=== PATIENT | female | born 1945 | race Caucasian/White ===

== ENCOUNTER 2018-08-14 16:16 | Inpatient (IN) | payer MEDICARE, MEDICAID ==
[~2018-08-14] VITALS: Ht 165.1 cm; Wt 73.5 kg
[~2018-08-14 16:16] MED LIST: ACET325T14 PO; ALBU8.5H5 INH; ALPR-475 PO; AMLO5TAB4 PO; AMOX1TAB64 PO; AZIT500T5 PO; CHOL100015 PO; CIPR500T87 PO; CYCL25CA12 PO; CYCL5TAB PO; DIAZ5TAB PO; DICL50TA4 PO; DICY10CA3 PO; DOCU-131 PO; FAMO-79 PO; FLUT1DIS5 IH; GABA300C10 PO; GUAI600T80 PO; HYDR-3237 PO; HYDR-3343 PO; IBUP-1222 PO; INSU100I28 SQ-INSULIN; INSU100V8 SQ; IPRA3AMP30 NEB; IPRA3AMP30 NPPB; LACT10SO28 PO; LEVO500T47 PO; LISI-170 PO; NICO-487 TD; NIFE10CA49 PO; NITR0.4T28 SL; ONDA4TAB10 PO; PANT40TA3 PO; POLY17PO5 PO; PRED20TA PO; TIOT18CA INH; TRIA40VI IM
--- NOTE | 2018-08-14 16:20 | NUR ---
PT BIB [facility] FROM HER GRANDDAUGHTER'S HOUSE WITH C/O SOB, ANXIETY, NAUSEA, AND EPIGASTRIC ABD PAIN. PT STATES HE HAS HX OF HERNIA, TAKES OMEPRAZOLE, IS SCHEDULED FOR ENDOSCOPY ON 08/23. PT STATES SHE HAS HAD INTERMITTENT ABD PAIN FOR SEVERAL YEARS AND "EVERY TIME I GO TO MY PCP, THEY SEND ME TO THE ER." 12-LEAD PER EMS UNREMARKABLE, INVERTED T WAVES NOTED. VS PER EMS: HR 74 SR, 130/88, BS 115. PT WAS TREATED WITH 4MG ZOFRAN AND 2MG VERSED FOR "PANIC ATTACK." PLACED ON 2L O2 NC AFTER VERSED. PT ARRIVES TO ED A&OX4, ANXIOUS, HYPERVENTILATING. MULTIPLE COMPLAINTS, POOR HISTORIAN, SCATTERED.
[2018-08-14] MEDS ORDERED: SODIUM CHLORIDE FLUSH 10ML SYR IVF ONE (16:30)
[2018-08-14] MEDS ORDERED: ONDANSETRON 2MG/ML, 2ML IVPush ONE ×2 (16:30→23:30)
[2018-08-14] MEDS ORDERED: LORazepam 2 MG/ML, 1ML IVPush ONE (16:30)
[2018-08-14 16:55] LABS: BASOPHILS % (AUTO) 1 % (0-1); EOSINOPHILS # (AUTO) 0.08 x10^3/uL (0-0.4); EOSINOPHILS % (AUTO) 1 % (1-7); LYMPHOCYTES # (AUTO) 3.41 x10^3/uL (1-3.4); LYMPHOCYTES % (AUTO) 41 % (22-44); MD NO; MEAN CORPUSCULAR HEMOGLOBIN 29.9 pg (27.0-34.8); MEAN CORPUSCULAR HGB CONC 32.8 g/dL (32.4-35.8); MEAN CORPUSCULAR VOLUME 91.3 fL (80-100); MEAN PLATELET VOLUME 8.5 fL (7.4-10.4); MONOCYTES # (AUTO) 0.32 x10^3/uL (0.2-0.8); MONOCYTES % (AUTO) 4 % (2-9); NEUTROPHILS # (AUTO) 4.41 x10^3/uL (1.8-6.8); NEUTROPHILS % (AUTO) 53 % (42-75); PLATELET COUNT 205 x10^3/uL (130-400); RED BLOOD COUNT 4.39 x10^6/uL (3.82-5.3); RED CELL DISTRIBUTION WIDTH 13.4 % (9.6-15.2)
[2018-08-14] MEDS ORDERED: ONDANSETRON 2MG/ML, 2ML ONE (16:56)
[2018-08-14 17:05] LABS: INTERNATIONAL NORMALIZED RATIO 0.94 (0.93-1.1); PROTHROMBIN TIME 9.9 Seconds (9.6-11.5)
[2018-08-14 17:08] LABS: ALBUMIN 3.6 g/dL (3.4-5.0); ANION GAP 7 mmol/L (5-15); CALCIUM 10.2 mg/dL (8.5-10.1); CHLORIDE 114 mmol/L (98-107)
--- NOTE | 2018-08-14 17:09 | NUR ---
PT MEDICATED PER ORDERS. WARM BLANKETS PROVIDED. UNDERSTANDS POC.
[2018-08-14 17:13] LABS: ALANINE AMINOTRANSFERASE 17 U/L (12-78); ALKALINE PHOSPHATASE 104 U/L (45-117); BILIRUBIN,TOTAL 0.3 mg/dL (0.2-1.0); CREATININE 1.17 mg/dL (0.55-1.02); TOTAL PROTEIN 6.9 g/dL (6.4-8.2); TROPONIN I < 0.015 ng/mL (0.000-0.045)
[2018-08-14] MEDS ORDERED: ASPIRIN 81 MG TABLET CHEW ONE (18:23)
--- NOTE | 2018-08-14 18:29 | NUR ---
PT TO CT VIA [facility]AMAR. AT BS.
[2018-08-14] MEDS ORDERED: ASPIRIN 81 MG TABLET CHEW PO ONE (18:30)
[2018-08-14] MEDS ORDERED: OMNIPAQUE 350 MG/ML, 100ML BOTTLE ONE (18:55)
--- NOTE | 2018-08-14 19:04 | NUR ---
ASSISTED PT ONTO BSC. PT VOIDED WITHOUT DIFFICULTY. ASSISTED WITH HYGIENE. NEW MATHEW WRAP PROVIDED PER PT REQUEST FOR HER L HAND/WRIST.
[2018-08-14] MEDS ORDERED: SODIUM CHLORIDE FLUSH 10ML SYR IVF PRN (19:30)
[2018-08-14] MEDS ORDERED: LISI-167 PO (19:55)
[2018-08-14] MEDS ORDERED: LEVE500T8 PO (19:55)
[2018-08-14] MEDS ORDERED: OMEP-110 PO (19:55)
--- NOTE | 2018-08-14 20:40 | NUR ---
VIKTORIA NITHYA [phone] LEAVING FOR THE NIGHT. WANTS TO BE CALLED WITH ANY UPDATES/PLAN FOR TOMORROW.
[2018-08-14] MEDS ORDERED: DIAZEPAM 5 MG TABLET PO ONE (23:30)
[2018-08-15] MEDS ORDERED: LIDODERM 5% PATCH TD PRN
[2018-08-15] MEDS ORDERED: PROMETHAZINE 25 MG/ML, 1ML IM PRN
[2018-08-15] MEDS ORDERED: hydrALAzine 20 MG/ML, 1ML IVPush PRN
[2018-08-15] MEDS ORDERED: BISACODYL 10 MG SUPP PR PRN
[2018-08-15] MEDS ORDERED: CYCLOBENZAPRINE 10 MG TABLET PO PRN
[2018-08-15] MEDS ORDERED: OXYcodone/APAP 5/325MG TABLET PO PRN
[2018-08-15] MEDS ORDERED: NITROGLYCERIN 0.4 MG/SPRAY SL PRN
[2018-08-15] MEDS ORDERED: NITROGLYCERIN 0.4 MG BOTTLE (25 TABS) SL PRN ×2
[2018-08-15 00:28] VITALS: BP 131/83
[2018-08-15 00:34] VITALS: BP 121/63
[2018-08-15] MEDS: morphine SULFATE 10 MG/ML, 1ML IVPush PRN ×2 (00:43→21:04)
[2018-08-15] MEDS: HEPARIN 5,000 UNITS/ML, 1ML SQ SCH ×3 (00:44→16:23)
[2018-08-15] MEDS: GABAPENTIN 100 MG CAPSULE PO PRN ×2 (00:44→07:53)
[2018-08-15] MEDS: LEVETIRACETAM 500 MG TABLET PO SCH ×3 (00:57→20:52)
[2018-08-15] MEDS: DIAZEPAM 5 MG TABLET PO PRN ×2 (00:57→19:40)
[2018-08-15 01:02] VITALS: BP 161/84
[2018-08-15] MEDS ORDERED: ALBUTEROL/IPRATROPIUM 2.5MG/0.5MG, 3 ML NPPB PRN (01:30)
[2018-08-15 02:26] LABS: TROPONIN I < 0.015 ng/mL (0.000-0.045)
[2018-08-15 02:37] LABS: HEMOGLOBIN A1C 5.8 % (4.2-6.3)
[2018-08-15] MEDS: ACETAMINOPHEN 325 MG TABLET PO PRN ×3 (03:19→16:22)
[2018-08-15] MEDS: ONDANSETRON 2MG/ML, 2ML IVPush PRN ×2 (03:27→18:56)
[2018-08-15 05:40] LABS: CHOLESTEROL, TOTAL 216 mg/dL (140-239); TRIGLYCERIDES 419 mg/dL (50-200)
[2018-08-15 05:43] LABS: CHOL/HDL RATIO 4.7; HDL CHOL % 21 % (28-40); HDL CHOLESTEROL (DIRECT) 46 mg/dL (40-60); TROPONIN I < 0.015 ng/mL (0.000-0.045)
[2018-08-15 07:00] VITALS: BP 137/75
[2018-08-15] MEDS: PANTOPROZOLE 40MG TABLET PO SCH ×4 (07:30→16:22)
[2018-08-15 08:22] LABS: ANION GAP 9 mmol/L (5-15); CALCIUM 10.3 mg/dL (8.5-10.1); CHLORIDE 111 mmol/L (98-107); CREATININE 1.22 mg/dL (0.55-1.02)
[2018-08-15] MEDS ORDERED: LISINOPRIL 5 MG TABLET PO SCH (09:00)
[2018-08-15] MEDS ORDERED: AMLODIPINE 5 MG TABLET PO SCH (09:00)
[2018-08-15] MEDS ORDERED: LISINOPRIL 20 MG TABLET ONE (09:57)
[2018-08-15] MEDS: ALBUTEROL/IPRATROPIUM 2.5MG/0.5MG, 3 ML NPPB SCH ×4 (09:58→20:00)
[2018-08-15] MEDS ORDERED: LISINOPRIL 20 MG TABLET PO ONE (10:00)
[2018-08-15] MEDS: SENNA/DOCUSATE TABLET PO SCH (10:01)
[2018-08-15] MEDS: ASPIRIN 81 MG TABLET EC PO SCH (10:02)
[2018-08-15 13:55] VITALS: BP 121/81
[2018-08-15] MEDS: POLYETHYLENE GLYCOL 17 GM PACKET PO SCH (17:47)
[2018-08-15 19:26] VITALS: BP 149/86
[2018-08-15 22:55] LABS: OCCULT BLOOD NEGATIVE (NEGATIVE)
[2018-08-16] MEDS: HEPARIN 5,000 UNITS/ML, 1ML SQ SCH ×3 (01:25→16:19)
[2018-08-16] MEDS: morphine SULFATE 10 MG/ML, 1ML IVPush PRN ×2 (01:25→16:25)
[2018-08-16 02:00] VITALS: BP 135/88
[2018-08-16 05:11] LABS: BASOPHILS # (AUTO) 0.11 x10^3/uL (0-0.1); BASOPHILS % (AUTO) 2 % (0-1); EOSINOPHILS # (AUTO) 0.09 x10^3/uL (0-0.4); EOSINOPHILS % (AUTO) 1 % (1-7); LYMPHOCYTES # (AUTO) 3.54 x10^3/uL (1-3.4); LYMPHOCYTES % (AUTO) 52 % (22-44); MD NO; MEAN CORPUSCULAR HEMOGLOBIN 29.4 pg (27.0-34.8); MEAN CORPUSCULAR HGB CONC 32.5 g/dL (32.4-35.8); MEAN CORPUSCULAR VOLUME 90.7 fL (80-100); MEAN PLATELET VOLUME 8.4 fL (7.4-10.4); MONOCYTES # (AUTO) 0.32 x10^3/uL (0.2-0.8); MONOCYTES % (AUTO) 5 % (2-9); NEUTROPHILS # (AUTO) 2.76 x10^3/uL (1.8-6.8); NEUTROPHILS % (AUTO) 41 % (42-75); PLATELET COUNT 168 x10^3/uL (130-400); RED BLOOD COUNT 3.98 x10^6/uL (3.82-5.3); RED CELL DISTRIBUTION WIDTH 13.8 % (9.6-15.2)
[2018-08-16 05:23] LABS: ALANINE AMINOTRANSFERASE 18 U/L (12-78); ALBUMIN 3.2 g/dL (3.4-5.0); ANION GAP 5 mmol/L (5-15); CALCIUM 9.5 mg/dL (8.5-10.1); CHLORIDE 112 mmol/L (98-107)
[2018-08-16 05:25] LABS: ALKALINE PHOSPHATASE 96 U/L (45-117); BILIRUBIN,TOTAL 0.3 mg/dL (0.2-1.0); CREATININE 1.62 mg/dL (0.55-1.02); TOTAL PROTEIN 6.2 g/dL (6.4-8.2)
[2018-08-16] MEDS: ALBUTEROL/IPRATROPIUM 2.5MG/0.5MG, 3 ML NPPB SCH ×2 (08:00→11:23)
[2018-08-16] MEDS ORDERED: LISINOPRIL 20 MG TABLET PO SCH (09:00)
[2018-08-16 09:45] VITALS: BP 119/79
[2018-08-16] MEDS: PANTOPROZOLE 40MG TABLET PO SCH ×2 (09:49→16:26)
[2018-08-16] MEDS: POLYETHYLENE GLYCOL 17 GM PACKET PO SCH (09:50)
[2018-08-16] MEDS: SENNA/DOCUSATE TABLET PO SCH (09:50)
[2018-08-16] MEDS: ASPIRIN 81 MG TABLET EC PO SCH (09:50)
[2018-08-16] MEDS: LEVETIRACETAM 500 MG TABLET PO SCH (09:50)
[2018-08-16] MEDS: DIAZEPAM 5 MG TABLET PO PRN (12:26)
[2018-08-16 13:19] VITALS: BP 119/73
[2018-08-16 19:18] VITALS: BP 120/78
== END 2018-08-16 20:21 | disposition home or self-care (01) | DRG 683 ==
LOC: ED 19:22 → EDIP 19:26 → 5SO 20:54
PROVIDERS: ADMIT Family Medicine; ATTEND Internal Medicine
DX: N17.9 Acute kidney failure, unspecified (principal); I50.32 Chronic diastolic (congestive) heart failure; I13.0 Hypertensive heart and chronic kidney disease with heart failure and stage 1 through stage 4 chronic kidney disease, or unspecified chronic kidney disease; J96.10 Chronic respiratory failure, unspecified whether with hypoxia or hypercapnia; F41.1 Generalized anxiety disorder; K21.9 Gastro-esophageal reflux disease without esophagitis; Z85.6 Personal history of leukemia; N18.3 Chronic kidney disease, stage 3 (moderate); K59.09 Other constipation; J43.9 Emphysema, unspecified; G40.909 Epilepsy, unspecified, not intractable, without status epilepticus; Z99.81 Dependence on supplemental oxygen; Z90.710 Acquired absence of both cervix and uterus; Z86.010 Personal history of colon polyps; E11.22 Type 2 diabetes mellitus with diabetic chronic kidney disease; E11.42 Type 2 diabetes mellitus with diabetic polyneuropathy; E78.00 Pure hypercholesterolemia, unspecified; E78.5 Hyperlipidemia, unspecified; F41.0 Panic disorder [episodic paroxysmal anxiety]; R13.10 Dysphagia, unspecified
CPT/HCPCS: 36415; 71045; 71275; 74018; 80048; 80053; 80061; 82272; 83036; 83690; 83735; 83880; 84100; 84443; 84484; 85025; 85610; 85730; 93005; 93306; 94640; 96374; 96375; 99285; G0378; J1644; J2405; J2550; J7620; Q9967; J2060; J2270

== ENCOUNTER 2018-08-23 08:00 | Day surgery (SDC) | payer MEDICARE, MEDICAID ==
[~2018-08-23 08:00] MED LIST changes: +LEVE500T8 PO; +LISI-167 PO; +OMEP-110 PO
== END 2018-08-23 08:35 | disposition home or self-care (01) ==
LOC: OUT 08:00
PROVIDERS: ATTEND Internal Medicine Gastroenterology
DX: Z02.9 Encounter for administrative examinations, unspecified (principal)

== ENCOUNTER 2018-12-27 12:58 | Observation (INO) | payer MEDICARE, MEDICAID ==
[~2018-12-27] VITALS: Ht 165.1 cm; Wt 75.0 kg
[~2018-12-27 12:58] MED LIST changes: -ALPR-475 PO; +ALPR0.5T7 PO; +AZIT500T10 PO; -AZIT500T5 PO
[2018-12-27] MEDS ORDERED: LORazepam 2 MG/ML, 1ML ONE (13:10)
--- NOTE | 2018-12-27 13:14 | NUR ---
TASK RN, COVERING MEAL BREAK. SEE TRIAGE NOTE. PT ANXIOUS, RAPID RR WORSENING WHEN ERP CAME TO ROOM FOR ASSESSMENT. ATIVAN GIVEN IV PER ERP VO. ALL MONITORING IN PLACE. CALL LIGHT WITHIN REACH, WARM BLANKET PROVIDED.
[2018-12-27] MEDS ORDERED: LORazepam 2 MG/ML, 1ML IVPush ONE (13:30)
[2018-12-27] MEDS ORDERED: NITROGLYCERIN SINGLE TAB 0.4 MG SL PRN (13:30)
[2018-12-27] MEDS ORDERED: ASPIRIN 81 MG TABLET CHEW PO ONE (13:30)
[2018-12-27] MEDS ORDERED: SODIUM CHLORIDE FLUSH 10ML SYR IVF ONE (13:30)
[2018-12-27 13:40] LABS: MEAN CORPUSCULAR HEMOGLOBIN 29.9 pg (27.0-34.8); MEAN CORPUSCULAR HGB CONC 32.5 g/dL (32.4-35.8); MEAN CORPUSCULAR VOLUME 92.1 fL (80-100); MEAN PLATELET VOLUME 8.9 fL (7.4-10.4); PLATELET COUNT 279 x10^3/uL (130-400); RED BLOOD COUNT 4.48 x10^6/uL (3.82-5.3); RED CELL DISTRIBUTION WIDTH 15.5 % (9.6-15.2)
[2018-12-27 13:50] LABS: ANION GAP 6 mmol/L (5-15); CALCIUM 10.6 mg/dL (8.5-10.1); CHLORIDE 111 mmol/L (98-107)
[2018-12-27 13:51] LABS: INTERNATIONAL NORMALIZED RATIO 0.95 (0.93-1.1)
[2018-12-27 14:00] LABS: ALANINE AMINOTRANSFERASE 28 U/L (12-78); ALKALINE PHOSPHATASE 125 U/L (45-117); BILIRUBIN,TOTAL 0.4 mg/dL (0.2-1.0); CREATININE 1.14 mg/dL (0.55-1.02); TOTAL PROTEIN 7.4 g/dL (6.4-8.2); TROPONIN I < 0.015 ng/mL (0.000-0.045)
[2018-12-27] MEDS ORDERED: ASPIRIN 81 MG TABLET CHEW ONE (14:03)
[2018-12-27 14:08] LABS: MD YES
[2018-12-27 14:12] LABS: BAND#(MANUAL) 0.85 x10^3/uL; BANDS%(MANUAL) 4 % (0-7); BASOS#(MANUAL) 0.21 x10^3/uL (0-0.1); BASOS% (MANUAL) 1 % (0-1); EOS#(MANUAL) 0.43 x10^3/uL (0.0-0.4); EOS% (MANUAL) 2 % (1-7); LYMPH#(MANUAL) 5.96 x10^3/uL (1-3.4); LYMPHS% (MANUAL) 28 % (22-44); METAMYELOCYTES# (MANUAL) 1.07 x10^3/uL (0-0); METAMYELOCYTES% (MANUAL) 5 % (0-1); MONOS#(MANUAL) 0.21 x10^3/uL (0.3-2.7); MONOS% (MANUAL) 1 % (2-9); MYELOCYTES# (MANUAL) 0.21 x10^3/uL (0-0); MYELOCYTES% (MANUAL) 1 % (0-0); SEG#(MANUAL) 12.35 x10^3/uL (1.8-6.8); SEGS% (MANUAL) 58 % (42-75)
[2018-12-27 14:15] LABS: <PLATELET ESTIMATE> ADEQUATE; <PLT MORPHOLOGY> NORMAL PLT MORPH; ANISOCYTOSIS 1+
--- NOTE | 2018-12-27 14:19 | NUR ---
PT BACK FROM IMAGING.
[2018-12-27] MEDS ORDERED: SODIUM CHLORIDE FLUSH 10ML SYR IVF PRN (15:00)
--- NOTE | 2018-12-27 15:02 | NUR ---
MD IN TO UPDATE PT ON POC, PT TO BE ADMITTED. PT/SIG OTHER PLEASED TO HEAR THIS AND ARE BECOMING MUCH LESS ANXIOUS. AWAITING BED PLACEMENT
[2018-12-27] MEDS ORDERED: NITROGLYCERIN 0.4 MG BOTTLE (25 TABS) SL PRN (16:00)
[2018-12-27] MEDS ORDERED: LORazepam 1MG TABLET PO PRN (16:00)
[2018-12-27] MEDS ORDERED: BISACODYL 10 MG SUPP PR PRN (16:00)
[2018-12-27] MEDS ORDERED: NITROGLYCERIN 0.4 MG/SPRAY SL PRN (16:00)
[2018-12-27] MEDS ORDERED: POLYETHYLENE GLYCOL 17 GM PACKET PO PRN (16:00)
[2018-12-27] MEDS ORDERED: ONDANSETRON 2MG/ML, 2ML IV PRN (16:00)
[2018-12-27] MEDS ORDERED: ACETAMINOPHEN 650 MG/20.3 ML UDC PO PRN (16:00)
--- NOTE | 2018-12-27 16:18 | NUR ---
ATTEMPTED TO CALL REPORT, RN TO CALL BACK
[2018-12-27] MEDS ORDERED: ACETAMINOPHEN 325 MG TABLET PO PRN (16:30)
[2018-12-27] MEDS: HEPARIN 5,000 UNITS/ML, 1ML SQ SCH (18:06)
[2018-12-27] MEDS ORDERED: HYDR-826 PO (18:11)
[2018-12-27] MEDS ORDERED: TIOT18CA INH (18:11)
[2018-12-27 19:28] VITALS: BP 144/90
[2018-12-27 20:17] LABS: TROPONIN I < 0.015 ng/mL (0.000-0.045)
[2018-12-27] MEDS: ALBUTEROL/IPRATROPIUM 2.5MG/0.5MG, 3 ML NPPB SCH (21:00)
[2018-12-27] MEDS ORDERED: SENNA/DOCUSATE TABLET PO SCH (21:00)
[2018-12-27 21:55] LABS: BASOPHILS # (AUTO) 0.01 x10^3/uL (0-0.1); BASOPHILS % (AUTO) 0 % (0-1); EOSINOPHILS # (AUTO) 0.14 x10^3/uL (0-0.4); EOSINOPHILS % (AUTO) 1 % (1-7); LYMPHOCYTES # (AUTO) 1.44 x10^3/uL (1-3.4); LYMPHOCYTES % (AUTO) 10 % (22-44); MONOCYTES # (AUTO) 0.85 x10^3/uL (0.2-0.8); MONOCYTES % (AUTO) 6 % (2-9); NEUTROPHILS % (AUTO) 83 % (42-75)
[2018-12-27] MEDS: SODIUM CHLORIDE FLUSH 10ML SYR IVF SCH (22:20)
[2018-12-27] MEDS: morphine SULFATE 10 MG/ML, 1ML IV PRN (22:20)
[2018-12-27] MEDS: LEVETIRACETAM 500 MG TABLET PO SCH (22:20)
[2018-12-28] MEDS: HEPARIN 5,000 UNITS/ML, 1ML SQ SCH ×2 (01:06→09:03)
[2018-12-28 01:58] LABS: MEAN CORPUSCULAR HEMOGLOBIN 29.5 pg (27.0-34.8); MEAN CORPUSCULAR HGB CONC 32.5 g/dL (32.4-35.8); MEAN CORPUSCULAR VOLUME 90.8 fL (80-100); MEAN PLATELET VOLUME 8.8 fL (7.4-10.4); PLATELET COUNT 240 x10^3/uL (130-400); RED CELL DISTRIBUTION WIDTH 15.5 % (9.6-15.2)
[2018-12-28 02:09] LABS: ALANINE AMINOTRANSFERASE 21 U/L (12-78); ALBUMIN 3.3 g/dL (3.4-5.0); ANION GAP 5 mmol/L (5-15); CALCIUM 9.7 mg/dL (8.5-10.1); CHLORIDE 114 mmol/L (98-107)
[2018-12-28 02:14] LABS: HEMOGLOBIN A1C 5.8 % (4.2-6.3); TROPONIN I < 0.015 ng/mL (0.000-0.045)
[2018-12-28 02:20] LABS: ALKALINE PHOSPHATASE 129 U/L (45-117); BILIRUBIN,TOTAL 0.2 mg/dL (0.2-1.0); CHOL/HDL RATIO 5.5; CHOLESTEROL, TOTAL 193 mg/dL (140-239); CREATININE 1.07 mg/dL (0.55-1.02); HDL CHOL % 18 % (28-40); HDL CHOLESTEROL (DIRECT) 35 mg/dL (40-60); LDL CHOLESTEROL,CALCULATED 94 mg/dL (54-169); LDL/HDL RATIO 2.7 (0.5-3.0); TOTAL PROTEIN 6.4 g/dL (6.4-8.2); TRIGLYCERIDES 321 mg/dL (50-200); VLDL CHOLESTEROL 64 mg/dL (0-25)
[2018-12-28 02:42] LABS: MD YES
[2018-12-28 02:45] LABS: <PLATELET ESTIMATE> ADEQUATE; <PLT MORPHOLOGY> NORMAL PLT MORPH; ANISOCYTOSIS 1+; BAND#(MANUAL) 0.18 x10^3/uL; BANDS%(MANUAL) 1 % (0-7); BASOS#(MANUAL) 0.36 x10^3/uL (0-0.1); BASOS% (MANUAL) 2 % (0-1); EOS#(MANUAL) 0.54 x10^3/uL (0.0-0.4); EOS% (MANUAL) 3 % (1-7); LYMPH#(MANUAL) 4.89 x10^3/uL (1-3.4); LYMPHS% (MANUAL) 27 % (22-44); METAMYELOCYTES# (MANUAL) 0.36 x10^3/uL (0-0); METAMYELOCYTES% (MANUAL) 2 % (0-1); MONOS#(MANUAL) 0.18 x10^3/uL (0.3-2.7); MONOS% (MANUAL) 1 % (2-9); MYELOCYTES# (MANUAL) 0.18 x10^3/uL (0-0); MYELOCYTES% (MANUAL) 1 % (0-0); SEGS% (MANUAL) 63 % (42-75)
[2018-12-28] MEDS: ALBUTEROL/IPRATROPIUM 2.5MG/0.5MG, 3 ML NPPB SCH ×2 (02:59→08:52)
[2018-12-28 03:59] VITALS: BP 124/82
[2018-12-28] MEDS ORDERED: ASPIRIN 325 MG TABLET EC PO SCH (06:00)
[2018-12-28 08:38] VITALS: BP 126/70
[2018-12-28] MEDS ORDERED: LISINOPRIL 10 MG TABLET PO SCH (09:00)
[2018-12-28] MEDS ORDERED: OMEPRAZOLE 20 MG CAPSULE.DR PO SCH (09:00)
[2018-12-28] MEDS: SODIUM CHLORIDE FLUSH 10ML SYR IVF SCH (09:04)
[2018-12-28] MEDS: LEVETIRACETAM 500 MG TABLET PO SCH (09:05)
[2018-12-28] MEDS: morphine SULFATE 10 MG/ML, 1ML IV PRN (11:01)
[2018-12-28] MEDS ORDERED: DOCU-131 PO (11:27)
[2018-12-28] MEDS ORDERED: BUSP10TA PO (11:27)
[2018-12-28] MEDS ORDERED: ATOR-2 PO (11:27)
[2018-12-28] MEDS ORDERED: POLY17PO5 PO (11:27)
[2018-12-28] MEDS ORDERED: ONDA4TAB13 SL (13:33)
[2018-12-28] MEDS ORDERED: ATORVASTATIN 80 MG TABLET PO SCH (21:00)
== END 2018-12-28 13:42 | disposition home or self-care (01) ==
LOC: ED 14:32 → EDIP 14:33 → ED 15:02 → 5SO 17:04 → DCLOUNGE 12-28 13:25
PROVIDERS: ADMIT Family Medicine; ATTEND Internal Medicine
DX: F41.9 Anxiety disorder, unspecified (principal); F51.04 Psychophysiologic insomnia; K21.9 Gastro-esophageal reflux disease without esophagitis; E78.5 Hyperlipidemia, unspecified; K59.00 Constipation, unspecified; K59.09 Other constipation; E10.22 Type 1 diabetes mellitus with diabetic chronic kidney disease; C92.11 Chronic myeloid leukemia, BCR/ABL-positive, in remission; C92.10 Chronic myeloid leukemia, BCR/ABL-positive, not having achieved remission; G89.29 Other chronic pain; G40.909 Epilepsy, unspecified, not intractable, without status epilepticus; I13.0 Hypertensive heart and chronic kidney disease with heart failure and stage 1 through stage 4 chronic kidney disease, or unspecified chronic kidney disease; N18.3 Chronic kidney disease, stage 3 (moderate); J96.10 Chronic respiratory failure, unspecified whether with hypoxia or hypercapnia; I35.1 Nonrheumatic aortic (valve) insufficiency; E10.40 Type 1 diabetes mellitus with diabetic neuropathy, unspecified; J43.9 Emphysema, unspecified; Z87.891 Personal history of nicotine dependence; Z99.81 Dependence on supplemental oxygen; Z87.19 Personal history of other diseases of the digestive system; Z79.4 Long term (current) use of insulin
CPT/HCPCS: 36415; 71046; 74022; 80053; 80061; 83036; 83880; 84443; 84484; 85025; 85610; 85730; 93005; 96372; 96374; 96375; 96376; 99284; G0378; J1644; J2060; J2270

== ENCOUNTER 2019-02-20 12:27 | Outpatient (CLI) | payer MEDICARE, MEDICAID ==
[~2019-02-20 12:27] MED LIST changes: +ATOR-2 PO; +BUSP10TA PO; +HYDR-826 PO; +ONDA4TAB13 SL
== END 2019-02-20 23:59 | disposition home or self-care (01) ==
LOC: RAD 12:27
PROVIDERS: ATTEND Internal Medicine Gastroenterology
DX: R13.10 Dysphagia, unspecified (principal); K22.8 Other specified diseases of esophagus
CPT/HCPCS: 74220

== ENCOUNTER 2019-03-08 11:47 | Outpatient (CLI) | payer MEDICARE, MEDICAID ==
[2019-03-08 12:25] LABS: PLATELET COUNT 329 x10^3/uL (130-400)
[2019-03-08 12:33] LABS: ALANINE AMINOTRANSFERASE 21 U/L (12-78); ANION GAP 7 mmol/L (5-15); CALCIUM 10.6 mg/dL (8.5-10.1); CHLORIDE 113 mmol/L (98-107)
[2019-03-08 12:37] LABS: ALKALINE PHOSPHATASE 120 U/L (45-117); BILIRUBIN,TOTAL 0.5 mg/dL (0.2-1.0); CHOL/HDL RATIO 4.7; CHOLESTEROL, TOTAL 242 mg/dL (140-239); HDL CHOL % 21 % (28-40); HDL CHOLESTEROL (DIRECT) 51 mg/dL (40-60); LDL CHOLESTEROL,CALCULATED 127 mg/dL (54-169); LDL/HDL RATIO 2.5 (0.5-3.0); TOTAL PROTEIN 7.8 g/dL (6.4-8.2); TRIGLYCERIDES 320 mg/dL (50-200); VLDL CHOLESTEROL 64 mg/dL (0-25)
[2019-03-08 12:42] LABS: MEAN CORPUSCULAR HEMOGLOBIN 29.7 pg (27.0-34.8); MEAN CORPUSCULAR HGB CONC 32.2 g/dL (32.4-35.8); MEAN CORPUSCULAR VOLUME 92.2 fL (80-100); MEAN PLATELET VOLUME 8.9 fL (7.4-10.4); RED BLOOD COUNT 4.65 x10^6/uL (3.82-5.3); RED CELL DISTRIBUTION WIDTH 16.1 % (9.6-15.2)
[2019-03-08 13:42] LABS: MD YES
[2019-03-08 13:45] LABS: BAND#(MANUAL) 1.27 x10^3/uL; BANDS%(MANUAL) 5 % (0-7); BASOS#(MANUAL) 1.27 x10^3/uL (0-0.1); BASOS% (MANUAL) 5 % (0-1); EOS#(MANUAL) 0.25 x10^3/uL (0.0-0.4); EOS% (MANUAL) 1 % (1-7); LYMPHS% (MANUAL) 24 % (22-44); METAMYELOCYTES# (MANUAL) 0.76 x10^3/uL (0-0); METAMYELOCYTES% (MANUAL) 3 % (0-1); MONOS#(MANUAL) 0.76 x10^3/uL (0.3-2.7); MONOS% (MANUAL) 3 % (2-9); MYELOCYTES# (MANUAL) 0.51 x10^3/uL (0-0); MYELOCYTES% (MANUAL) 2 % (0-0); SEG#(MANUAL) 14.48 x10^3/uL (1.8-6.8); SEGS% (MANUAL) 57 % (42-75)
[2019-03-08 13:47] LABS: <PLATELET ESTIMATE> ADEQUATE; <PLT MORPHOLOGY> NORMAL PLT MORPH
[2019-03-08 13:48] LABS: <RBC MORPHOLOGY> NORMAL
[2019-03-13] MEDS ORDERED: POLY17PO5 PO (10:30)
[2019-03-13] MEDS ORDERED: BUSP10TA PO (10:30)
[2019-03-13] MEDS ORDERED: ONDA4TAB13 SL (10:30)
[2019-03-13] MEDS ORDERED: DOCU-131 PO (10:30)
[2019-03-13] MEDS ORDERED: IPRA3AMP30 INH (10:31)
== END 2019-03-08 23:59 | disposition home or self-care (01) ==
LOC: LAB 11:47
PROVIDERS: ATTEND Physician Assistant
DX: E78.5 Hyperlipidemia, unspecified (principal); N18.3 Chronic kidney disease, stage 3 (moderate); R73.03 Prediabetes; Z85.6 Personal history of leukemia
CPT/HCPCS: 36415; 80053; 80061; 82043; 82570; 83036; 85025

== ENCOUNTER 2019-03-14 07:55 | Day surgery (SDC) | payer MEDICARE, MEDICAID ==
[~2019-03-14] VITALS: Ht 165.1 cm; Wt 77.5 kg
[~2019-03-14 07:55] MED LIST changes: +IPRA3AMP30 INH
[2019-03-14 09:04] VITALS: BP 135/82
[2019-03-14] MEDS ORDERED: HYDR-36 PO (09:04)
[2019-03-14] MEDS ORDERED: ONDANSETRON 2MG/ML, 2ML ONE ×2 (09:15→09:21)
[2019-03-14] MEDS ORDERED: HALOPERIDOL 5 MG/ML IV PRN (09:30)
[2019-03-14] MEDS ORDERED: ONDANSETRON 2MG/ML, 2ML IVPush ONE (09:30)
[2019-03-14] MEDS ORDERED: ONDANSETRON ODT 8 MG PO ONE (09:30)
[2019-03-14] MEDS ORDERED: PROMETHAZINE 25 MG/ML, 1ML IV PRN (09:30)
[2019-03-14] MEDS ORDERED: PROPOFOL 10 MG/ML, 20ML ONE ×2 (09:39)
[2019-03-14] MEDS ORDERED: LACTATED RINGERS 1,000 ML IV SCH (10:00)
[2019-03-14] MEDS ORDERED: PROMETHAZINE 25 MG/ML, 1ML ONE (10:42)
[2019-03-14] MEDS ORDERED: hydrALAzine 20 MG/ML, 1ML ONE (10:54)
[2019-03-14] MEDS ORDERED: hydrALAzine 20 MG/ML, 1ML IV PRN (11:00)
== END 2019-03-14 13:25 | disposition home or self-care (01) ==
LOC: OUT 07:55
PROVIDERS: ATTEND Internal Medicine Gastroenterology
DX: K21.9 Gastro-esophageal reflux disease without esophagitis (principal); K29.50 Unspecified chronic gastritis without bleeding; J44.9 Chronic obstructive pulmonary disease, unspecified; I50.9 Heart failure, unspecified; Z79.899 Other long term (current) drug therapy
CPT/HCPCS: 43237; 43239; 82962; 88305; J0360; J2405; J2550; J2704; J7120

== ENCOUNTER 2019-08-22 10:12 | Emergency (ER) | payer MEDICARE, MEDICAID ==
[~2019-08-22] VITALS: Ht 165.1 cm; Wt 78.0 kg
[~2019-08-22 10:12] MED LIST changes: +HYDR-3246 PO
[2019-08-22] MEDS ORDERED: SODIUM CHLORIDE FLUSH 10ML SYR IVF ONE ×2 (10:30→11:00)
[2019-08-22] MEDS ORDERED: SODIUM CHLORIDE 0.9% 1,000ML IVBOLUS ONE (10:30)
[2019-08-22 11:02] LABS: BASOPHILS # (AUTO) 0.24 x10^3/uL (0-0.1); BASOPHILS % (AUTO) 3 % (0-1); EOSINOPHILS # (AUTO) 0.19 x10^3/uL (0-0.4); EOSINOPHILS % (AUTO) 2 % (1-7); LYMPHOCYTES # (AUTO) 1.65 x10^3/uL (1-3.4); LYMPHOCYTES % (AUTO) 20 % (22-44); MD NO; MEAN CORPUSCULAR HEMOGLOBIN 28.7 pg (27.0-34.8); MEAN CORPUSCULAR HGB CONC 32.4 g/dL (32.4-35.8); MEAN CORPUSCULAR VOLUME 88.6 fL (80-100); MEAN PLATELET VOLUME 8.9 fL (7.4-10.4); MONOCYTES # (AUTO) 0.16 x10^3/uL (0.2-0.8); MONOCYTES % (AUTO) 2 % (2-9); NEUTROPHILS # (AUTO) 5.81 x10^3/uL (1.8-6.8); NEUTROPHILS % (AUTO) 72 % (42-75); PLATELET COUNT 264 x10^3/uL (130-400); RED BLOOD COUNT 3.36 x10^6/uL (3.82-5.3); RED CELL DISTRIBUTION WIDTH 19.4 % (9.6-15.2)
[2019-08-22 11:05] LABS: ALANINE AMINOTRANSFERASE 17 U/L (12-78); ALBUMIN 3.7 g/dL (3.4-5.0); CALCIUM 10.2 mg/dL (8.5-10.1)
[2019-08-22 11:10] LABS: ALKALINE PHOSPHATASE 118 U/L (45-117); ANION GAP 3 mmol/L (5-15); BILIRUBIN,TOTAL 0.5 mg/dL (0.2-1.0); CHLORIDE 117 mmol/L (98-107); TOTAL PROTEIN 6.9 g/dL (6.4-8.2)
--- NOTE | 2019-08-22 11:56 | NUR ---
BREAK RN: PT REQUESTED SOCKS AND WAS PROVIDED SOCKS PRIOR TO PT GOING TO CT SCAN. PT AO X 4. SKIN PWD. RESP EVEN AND UNLABORED.
[2019-08-22] MEDS ORDERED: OMNIPAQUE 350 MG/ML, 100ML BOTTLE ONE (12:15)
--- NOTE | 2019-08-22 13:20 | NUR ---
enema administered pt with small bm prior to administration
--- NOTE | 2019-08-22 13:30 | NUR ---
RECEIVED REPORT FROM WERNER ACKERMAN. PT CURRENTLY ON COMMODE.
--- NOTE | 2019-08-22 13:41 | NUR ---
PT HAD SMALL BM IN COMMODE. ERP DR. PALACIO NOTIFIED. PER ERP OKAY TO DC.
[2019-08-22 13:42] VITALS: BP 135/45
[2019-08-24] MEDS ORDERED: SUCR1ORA5 PO (14:11)
[2019-08-24] MEDS ORDERED: LACT10SO24 PO (14:11)
[2019-08-24] MEDS ORDERED: PANT40TA5 PO (14:11)
[2019-08-24] MEDS ORDERED: DOCU-131 PO (14:11)
== END 2019-08-22 13:55 | disposition home or self-care (01) ==
LOC: ED 11:51
DX: R10.84 Generalized abdominal pain (principal); K59.00 Constipation, unspecified; R11.2 Nausea with vomiting, unspecified; R94.31 Abnormal electrocardiogram [ECG] [EKG]; I10 Essential (primary) hypertension; E11.9 Type 2 diabetes mellitus without complications; G40.909 Epilepsy, unspecified, not intractable, without status epilepticus; E78.5 Hyperlipidemia, unspecified; K21.9 Gastro-esophageal reflux disease without esophagitis; E78.00 Pure hypercholesterolemia, unspecified; F17.200 Nicotine dependence, unspecified, uncomplicated; J44.9 Chronic obstructive pulmonary disease, unspecified; Z90.710 Acquired absence of both cervix and uterus
CPT/HCPCS: 36415; 74177; 80053; 85025; 93005; 96360; 99285; J7030; Q9967

== ENCOUNTER → 2019-10-18 | Outpatient (CLI) | payer MEDICARE, MEDICAID ==
[~2019-10-18] MED LIST changes: +CHOL10003 PO; +DULO20CA18 PO; +IMAT400T PO; +LACT10SO24 PO; +PANT40TA6 PO; +SUCR1ORA5 PO; +TRAZ50TA66 PO
[2019-10-18 15:02] LABS: BASOPHILS # (AUTO) 0.15 x10^3/uL (0-0.1); BASOPHILS % (AUTO) 2 % (0-1); EOSINOPHILS # (AUTO) 0.12 x10^3/uL (0-0.4); EOSINOPHILS % (AUTO) 1 % (1-7); LYMPHOCYTES # (AUTO) 2.29 x10^3/uL (1-3.4); LYMPHOCYTES % (AUTO) 26 % (22-44); MD NO; MEAN CORPUSCULAR HEMOGLOBIN 27.7 pg (27.0-34.8); MEAN CORPUSCULAR HGB CONC 31.6 g/dL (32.4-35.8); MEAN CORPUSCULAR VOLUME 87.5 fL (80-100); MEAN PLATELET VOLUME 9.3 fL (7.4-10.4); MONOCYTES # (AUTO) 0.18 x10^3/uL (0.2-0.8); MONOCYTES % (AUTO) 2 % (2-9); NEUTROPHILS # (AUTO) 6.23 x10^3/uL (1.8-6.8); NEUTROPHILS % (AUTO) 70 % (42-75); PLATELET COUNT 244 x10^3/uL (130-400); RED BLOOD COUNT 4.16 x10^6/uL (3.82-5.3); RED CELL DISTRIBUTION WIDTH 17.5 % (9.6-15.2)
[2019-10-18 15:10] LABS: ALANINE AMINOTRANSFERASE 15 U/L (12-78); ALBUMIN 3.6 g/dL (3.4-5.0); ANION GAP 5 mmol/L (5-15); CHLORIDE 113 mmol/L (98-107)
[2019-10-18 15:13] LABS: ALKALINE PHOSPHATASE 115 U/L (45-117); BILIRUBIN,TOTAL 0.5 mg/dL (0.2-1.0); CREATININE 1.29 mg/dL (0.55-1.02); TOTAL PROTEIN 7.1 g/dL (6.4-8.2)
== END | disposition home or self-care (01) ==
LOC: LAB 14:38
PROVIDERS: ATTEND Internal Medicine Hematology & Oncology
DX: C92.11 Chronic myeloid leukemia, BCR/ABL-positive, in remission (principal); R11.0 Nausea; R16.1 Splenomegaly, not elsewhere classified; Z79.899 Other long term (current) drug therapy
CPT/HCPCS: 36415; 80053; 84550; 85025

== ENCOUNTER → 2019-10-25 | Outpatient (CLI) | payer MEDICARE, MEDICAID ==
[~2019-10-25] MED LIST changes: +DULO20CA45 PO
[2019-10-25 16:25] LABS: MICROSCOPIC AUTO
== END | disposition home or self-care (01) ==
LOC: STAR 13:54
PROVIDERS: ATTEND Thoracic Surgery (Cardiothoracic Vascular Surgery)
DX: Z01.812 Encounter for preprocedural laboratory examination (principal); Z20.828 Contact with and (suspected) exposure to other viral communicable diseases
CPT/HCPCS: 36415; 81001; 87086; 87635; 93005

== ENCOUNTER 2019-10-30 11:54 | Inpatient (IN) | payer MEDICARE, MEDICAID ==
[~2019-10-30] VITALS: Ht 165.1 cm; Wt 84.6 kg
[~2019-10-30 11:54] MED LIST changes: +PHENYLEPHRINE 10 MG/ML ONE; +ROCURONIUM 10MG/ML,5ML ONE; +SUGAMMADEX 200 MG/2 ML IVPush ONE
[2019-10-30] MEDS ORDERED: LACTATED RINGERS 1,000 ML IV SCH (12:28)
[2019-10-30] MEDS ORDERED: CHLORHEXIDINE 15 ML UDC MM ONE (12:30)
[2019-10-30] MEDS ORDERED: ONDANSETRON 2MG/ML, 2ML ONE ×2 (12:37→16:20)
[2019-10-30] MEDS ORDERED: CHLORHEXIDINE 15 ML UDC ONE (12:37)
[2019-10-30] MEDS ORDERED: LIDOCAINE-MPF 1%, 2ML ONE (12:37)
[2019-10-30] MEDS ORDERED: LIDOCAINE-MPF 1%, 2ML INFIL ONE (13:00)
[2019-10-30] MEDS ORDERED: ONDANSETRON 2MG/ML, 2ML IVPush ONE (13:00)
[2019-10-30] MEDS ORDERED: BUPIVACAINE/PF 0.5% ONE (14:18)
[2019-10-30] MEDS ORDERED: EPINEPHRINE 1 MG/ML, 1ML ONE (14:18)
[2019-10-30] MEDS ORDERED: FENTANYL PF 250 MCG/5ML ONE (14:36)
[2019-10-30] MEDS ORDERED: CIPROFLOXACIN/PMX 400MG/200ML 200 ML ONE (14:46)
[2019-10-30] MEDS ORDERED: MIDAZOLAM 1 MG/ML, 2ML ONE (14:47)
[2019-10-30] MEDS ORDERED: GLYCOPYRROLATE 0.2MG/1ML, 5ML ONE (16:20)
[2019-10-30] MEDS ORDERED: DEXAMETHASONE 4 MG/ML, 1ML ONE (16:20)
[2019-10-30] MEDS ORDERED: NEOSTIGMINE 1 MG/ML, 10ML ONE (16:20)
[2019-10-30] MEDS ORDERED: CEFAZOLIN 1,000 MG ONE (16:20)
[2019-10-30] MEDS ORDERED: PROPOFOL 10 MG/ML, 20ML ONE (16:20)
[2019-10-30] MEDS: LACTATED RINGERS 1,000 ML IV SCH ×2 (16:26→23:06)
[2019-10-30] MEDS ORDERED: hydrALAzine 20 MG/ML, 1ML IVPush PRN (16:30)
[2019-10-30] MEDS ORDERED: ENALAPRILAT 1.25 MG/ML, 2ML IVPush PRN (16:30)
[2019-10-30] MEDS ORDERED: DIPHENHYDRAMINE 50 MG/ML, 1ML IVPush PRN (16:30)
[2019-10-30] MEDS ORDERED: ACETAMINOPHEN 650 MG SUPP PR PRN (16:30)
[2019-10-30] MEDS ORDERED: LORazepam 2 MG/ML, 1ML IVPush PRN (16:30)
[2019-10-30] MEDS ORDERED: HYDROmorphone 1 MG/ML, 1ML INJ ONE ×2 (16:32→17:11)
[2019-10-30] MEDS ORDERED: FENTANYL PF 100 MCG/2ML ONE (16:32)
[2019-10-30] MEDS ORDERED: LORazepam 2 MG/ML, 1ML ONE (16:33)
[2019-10-30] MEDS ORDERED: OXYcodone 5 MG/5 ML ORAL.SOL UDC ONE (16:33)
[2019-10-30] MEDS: FENTANYL PF 100 MCG/2ML IV PRN ×2 (16:45→16:56)
[2019-10-30] MEDS: LORazepam 2 MG/ML, 1ML IVPush PRN ×2 (16:46→17:39)
[2019-10-30] MEDS: HYDROmorphone 1 MG/ML, 1ML INJ IVPush PRN ×4 (16:54→17:30)
[2019-10-30] MEDS ORDERED: LABETALOL 5MG/ML, 20ML IV PRN (17:00)
[2019-10-30] MEDS ORDERED: MEPERIDINE/PF 25MG/0.5ML IVPush PRN (17:00)
[2019-10-30] MEDS ORDERED: hydrALAzine 20 MG/ML, 1ML IV PRN (17:00)
[2019-10-30] MEDS ORDERED: ONDANSETRON 2MG/ML, 2ML IVPush PRN (17:00)
[2019-10-30] MEDS ORDERED: PROMETHAZINE 25 MG/ML, 1ML IVPush PRN (17:00)
[2019-10-30 18:45] VITALS: BP 121/79
[2019-10-30] MEDS: morphine SULFATE 10 MG/ML, 1ML IVPush PRN ×2 (18:55→20:57)
[2019-10-30] MEDS: KETOROLAC 30 MG/1 ML IVPush PRN (19:33)
[2019-10-30] MEDS: FAMOTIDINE 20 MG/2 ML IVPush SCH (20:57)
[2019-10-30 23:49] VITALS: BP 128/78
[2019-10-30] MEDS: ONDANSETRON 2MG/ML, 2ML IVPush PRN (23:50)
[2019-10-31] MEDS: morphine SULFATE 10 MG/ML, 1ML IVPush PRN ×3 (00:02→06:00)
[2019-10-31] MEDS: KETOROLAC 30 MG/1 ML IVPush PRN ×4 (01:29→22:15)
[2019-10-31] MEDS: LACTATED RINGERS 1,000 ML IV SCH (02:26)
[2019-10-31 04:26] VITALS: BP 136/73
[2019-10-31] MEDS: ONDANSETRON 2MG/ML, 2ML IVPush PRN (06:00)
[2019-10-31 06:04] LABS: ANION GAP 7 mmol/L (5-15); CALCIUM 9.3 mg/dL (8.5-10.1); CHLORIDE 114 mmol/L (98-107)
[2019-10-31 06:05] LABS: CREATININE 1.08 mg/dL (0.55-1.02)
[2019-10-31 06:30] VITALS: BP 137/80
[2019-10-31 06:36] LABS: BASOPHILS # (AUTO) 0.01 x10^3/uL (0-0.1); BASOPHILS % (AUTO) 0 % (0-1); EOSINOPHILS % (AUTO) 0 % (1-7); LYMPHOCYTES # (AUTO) 0.69 x10^3/uL (1-3.4); LYMPHOCYTES % (AUTO) 21 % (22-44); MD NO; MEAN CORPUSCULAR HGB CONC 31.8 g/dL (32.4-35.8); MEAN PLATELET VOLUME 9.2 fL (7.4-10.4); MONOCYTES # (AUTO) 0.05 x10^3/uL (0.2-0.8); MONOCYTES % (AUTO) 2 % (2-9); NEUTROPHILS # (AUTO) 2.48 x10^3/uL (1.8-6.8); NEUTROPHILS % (AUTO) 77 % (42-75); PLATELET COUNT 135 x10^3/uL (130-400); RED BLOOD COUNT 3.59 x10^6/uL (3.82-5.3); RED CELL DISTRIBUTION WIDTH 18.8 % (9.6-15.2)
[2019-10-31] MEDS ORDERED: HYDROcodone/APAP 7.5-325MG/15ML UDC PO PRN (09:00)
[2019-10-31] MEDS: FAMOTIDINE 20 MG/2 ML IVPush SCH ×2 (09:05→22:14)
[2019-10-31] MEDS: BUSPIRONE 10 MG TABLET PO SCH ×3 (09:05→22:14)
[2019-10-31] MEDS: TIOTROPIUM BROMIDE 18 MCG/INH INH SCH (09:06)
[2019-10-31] MEDS: LISINOPRIL 20 MG TABLET PO SCH ×2 (09:06→22:14)
[2019-10-31] MEDS: ENOXAPARIN 40 MG/0.4 ML SQ SCH (09:06)
[2019-10-31] MEDS: IMATINIB 100 MG TABLET PO SCH (09:09)
[2019-10-31] MEDS: CIPROFLOXACIN/PMX 400MG/200ML 200 ML IV SCH ×2 (10:55→22:19)
[2019-10-31 13:55] VITALS: BP 132/76
[2019-10-31 20:30] VITALS: BP 177/76
[2019-11-01 01:26] VITALS: BP 151/75
[2019-11-01] MEDS: KETOROLAC 30 MG/1 ML IVPush PRN ×3 (04:43→19:50)
[2019-11-01 07:32] VITALS: BP 144/76
[2019-11-01] MEDS: IMATINIB 100 MG TABLET PO SCH (09:00)
[2019-11-01] MEDS: TIOTROPIUM BROMIDE 18 MCG/INH INH SCH (09:07)
[2019-11-01] MEDS: ENOXAPARIN 40 MG/0.4 ML SQ SCH (09:08)
[2019-11-01] MEDS: BUSPIRONE 10 MG TABLET PO SCH ×3 (09:08→19:59)
[2019-11-01] MEDS: LISINOPRIL 20 MG TABLET PO SCH ×2 (09:08→19:59)
[2019-11-01] MEDS: CIPROFLOXACIN/PMX 400MG/200ML 200 ML IV SCH ×2 (09:32→21:56)
[2019-11-01 13:18] VITALS: BP 138/76
[2019-11-01] MEDS: HYDROcodone/APAP 5/325 TABLET PO PRN ×2 (17:19→22:52)
[2019-11-01] MEDS: ONDANSETRON 2MG/ML, 2ML IVPush PRN (19:50)
[2019-11-01] MEDS: FAMOTIDINE 20 MG/2 ML IVPush SCH (19:50)
[2019-11-01 20:00] VITALS: BP 136/71
[2019-11-02 02:00] VITALS: BP 122/65
[2019-11-02] MEDS: ONDANSETRON 2MG/ML, 2ML IVPush PRN (02:27)
[2019-11-02 08:09] VITALS: BP 132/79
[2019-11-02] MEDS: BUSPIRONE 10 MG TABLET PO SCH (08:20)
[2019-11-02] MEDS: LISINOPRIL 20 MG TABLET PO SCH (08:20)
[2019-11-02] MEDS ORDERED: DOCUSATE 100 MG CAPSULE PO PRN (08:30)
[2019-11-02] MEDS: IMATINIB 100 MG TABLET PO SCH (09:00)
[2019-11-02] MEDS: TIOTROPIUM BROMIDE 18 MCG/INH INH SCH (09:00)
[2019-11-02] MEDS: ENOXAPARIN 40 MG/0.4 ML SQ SCH (09:00)
[2019-11-02] MEDS: CIPROFLOXACIN/PMX 400MG/200ML 200 ML IV SCH (09:46)
[2019-11-02] MEDS ORDERED: HYDR-3240 PO (09:50)
[2019-11-02] MEDS ORDERED: ONDA4TAB13 SL (09:51)
[2019-11-02 11:10] VITALS: BP 138/76
== END 2019-11-02 12:03 | disposition home or self-care (01) | DRG 394 ==
LOC: ORIP 11:54 → 4NE 18:19 → DCLOUNGE 11-02 11:55
PROVIDERS: ADMIT Thoracic Surgery (Cardiothoracic Vascular Surgery); ATTEND Thoracic Surgery (Cardiothoracic Vascular Surgery)
PROC: 8E0W4CZ Robotic Assisted Procedure of Trunk Region, Percutaneous Endoscopic Approach (ICD-10-PCS; 2019-10-30)
PROC: 0DB34ZZ Excision of Lower Esophagus, Percutaneous Endoscopic Approach (ICD-10-PCS; principal; 2019-10-30 14:00)
DX: D13.0 Benign neoplasm of esophagus (principal); J96.10 Chronic respiratory failure, unspecified whether with hypoxia or hypercapnia; R13.10 Dysphagia, unspecified
CPT/HCPCS: 36415; 71045; 80048; 85025; 88305; C1729; G0378; J0171; J0690; J0744; J1100; J1170; J1650; J1885; J2250; J2405; J2704; J2710; J3010; C1760; J2060; J2270; J2370; J3490; J7120

== ENCOUNTER → 2019-12-18 | Outpatient (CLI) | payer MEDICARE, MEDICAID ==
[~2019-12-18] MED LIST changes: +HYDR-3240 PO; -PHENYLEPHRINE 10 MG/ML ONE; -ROCURONIUM 10MG/ML,5ML ONE; -SUGAMMADEX 200 MG/2 ML IVPush ONE
== END | disposition home or self-care (01) ==
LOC: RAD 14:06
PROVIDERS: ATTEND Specialist
DX: M47.814 Spondylosis without myelopathy or radiculopathy, thoracic region (principal); I71.2 Thoracic aortic aneurysm, without rupture; G89.29 Other chronic pain
CPT/HCPCS: 72072; 72110

== ENCOUNTER 2020-01-17 14:06 | Emergency (ER) | payer MEDICARE, MEDICAID ==
[~2020-01-17] VITALS: Ht 172.7 cm; Wt 84.1 kg
[~2020-01-17 14:06] MED LIST changes: -NICO-487 TD; +NICO-587 TD
[2020-01-17 15:05] VITALS: BP 162/92
== END 2020-01-17 15:22 | disposition home or self-care (01) ==
LOC: ED 15:13
DX: I71.2 Thoracic aortic aneurysm, without rupture (principal); R07.89 Other chest pain; I10 Essential (primary) hypertension; E11.9 Type 2 diabetes mellitus without complications; K21.9 Gastro-esophageal reflux disease without esophagitis; J44.9 Chronic obstructive pulmonary disease, unspecified; E87.6 Hypokalemia; E78.00 Pure hypercholesterolemia, unspecified; E78.5 Hyperlipidemia, unspecified; G40.909 Epilepsy, unspecified, not intractable, without status epilepticus; Z90.710 Acquired absence of both cervix and uterus; Z87.891 Personal history of nicotine dependence
CPT/HCPCS: 99283

== ENCOUNTER 2020-01-28 14:27 | Emergency (ER) | payer MEDICARE, MEDICAID ==
[~2020-01-28] VITALS: Ht 172.7 cm; Wt 84.0 kg
--- NOTE | 2020-01-28 14:40 | NUR ---
STRAIGHT BACK, CODE 250. PT WITH C/O INCREASE IN ABD PAIN FROM YESTERDAY, SOB WITH LIMITED ABILITY TO SPEAK WHILE TALKING TO THIS RN, STATES SOB/PAIN HAS GOTTON WORSE SINCE SHE ARRIVED HERE TODAY. PT POINTING TO EPIGASTRIC AREA, CLUTCHING CHEST. "ITS REALLY BAD HERE" PT ALSO WITH C/O DIZZINESS. PT WITH HX AAA, HERE TODAY FOR US OF GALLBLADDER PER PT. PT TO RM 17. PT TO BP, CONT PULSE OX, CARD MONITOR. AT BEDSIDE, ERMD IN TO EVAL PT, US COMPLETED OF AORTA. EKG COMPLETED. AWAITING FOR ADDITIONAL ORDERS. REPORT TO JAVED CALDERA
[2020-01-28] MEDS ORDERED: SODIUM CHLORIDE FLUSH 10ML SYR IVF ONE (15:00)
[2020-01-28] MEDS ORDERED: MORPHINE SULFATE 4 MG/ML, 1ML IVPush PRN (15:00)
[2020-01-28] MEDS ORDERED: MORPHINE SULFATE 4 MG/ML, 1ML ONE (15:09)
[2020-01-28 15:28] LABS: MEAN CORPUSCULAR HEMOGLOBIN 27.7 pg (27.0-34.8); PLATELET COUNT 370 x10^3/uL (130-400); RED BLOOD COUNT 4.73 x10^6/uL (3.82-5.3); RED CELL DISTRIBUTION WIDTH 16.7 % (9.6-15.2)
[2020-01-28 15:31] LABS: ALBUMIN 4.1 g/dL (3.4-5.0); CALCIUM 10.3 mg/dL (8.5-10.1)
[2020-01-28 15:37] LABS: ALANINE AMINOTRANSFERASE 19 U/L (12-78); ALKALINE PHOSPHATASE 124 U/L (45-117); BILIRUBIN,TOTAL 0.5 mg/dL (0.2-1.0); CREATININE 1.27 mg/dL (0.55-1.02); TOTAL PROTEIN 7.5 g/dL (6.4-8.2); TROPONIN I < 0.015 ng/mL (0.000-0.045)
[2020-01-28 15:50] LABS: ANION GAP 4 mmol/L (5-15); CHLORIDE 112 mmol/L (98-107)
[2020-01-28 16:04] VITALS: BP 161/80
[2020-01-28 16:13] LABS: MD YES
[2020-01-28 16:17] LABS: ANISOCYTOSIS 1+; BAND#(MANUAL) 4.11 x10^3/uL; BANDS%(MANUAL) 10 % (0-7); BASOS#(MANUAL) 1.23 x10^3/uL (0-0.1); BASOS% (MANUAL) 3 % (0-1); EOS#(MANUAL) 0.41 x10^3/uL (0.0-0.4); EOS% (MANUAL) 1 % (1-7); LYMPH#(MANUAL) 3.29 x10^3/uL (1-3.4); LYMPHS% (MANUAL) 8 % (22-44); METAMYELOCYTES# (MANUAL) 2.88 x10^3/uL (0-0); METAMYELOCYTES% (MANUAL) 7 % (0-1); MYELOCYTES# (MANUAL) 2.06 x10^3/uL (0-0); MYELOCYTES% (MANUAL) 5 % (0-0); SEG#(MANUAL) 27.13 x10^3/uL (1.8-6.8); SEGS% (MANUAL) 66 % (42-75)
[2020-01-28 16:18] LABS: <PLATELET ESTIMATE> ADEQUATE; <PLT MORPHOLOGY> NORMAL PLT MORPH
--- NOTE | 2020-01-28 17:23 | NUR ---
BREAK RN: PT DISCHARGED FOR PRIMARY RN. PT HAS A RIDE HOME BY HER .
== END 2020-01-28 17:25 | disposition home or self-care (01) ==
LOC: ED 17:19
DX: K21.00 Gastro-esophageal reflux disease with esophagitis, without bleeding (principal); K59.00 Constipation, unspecified; R10.13 Epigastric pain; R21 Rash and other nonspecific skin eruption; R42 Dizziness and giddiness; R06.02 Shortness of breath; R07.89 Other chest pain; I10 Essential (primary) hypertension; E11.9 Type 2 diabetes mellitus without complications; K21.9 Gastro-esophageal reflux disease without esophagitis; J44.9 Chronic obstructive pulmonary disease, unspecified; E78.5 Hyperlipidemia, unspecified; E78.00 Pure hypercholesterolemia, unspecified; G40.909 Epilepsy, unspecified, not intractable, without status epilepticus; Z87.891 Personal history of nicotine dependence; Z90.710 Acquired absence of both cervix and uterus
CPT/HCPCS: 36415; 76700; 80053; 83690; 84484; 85025; 93005; 96374; 99285; J2270